=== PATIENT | male | born 1970 | race Caucasian/White ===

== ENCOUNTER → 2018-05-23 | Outpatient (CLI) | payer OTHER ==
[~2018-05-23] MED LIST: NEXIUM40 MG PO; NORCO 5-325 TA1 EACH PO; PHENERGAN 25 MG25 MG PO; TOPROL XL25 MG
== END ==
LOC: M.CT 07:41
DX: R91.1 Solitary pulmonary nodule (principal)

== ENCOUNTER 2018-08-01 08:19 | Emergency (ER) | payer OTHER ==
[~2018-08-01] VITALS: Ht 180.3 cm; Wt 102.1 kg
[2018-08-01 08:58] LABS: ABSOLUTE EOSINOPHILS 0.1 thou/uL (0.0-0.7); ABSOLUTE MONOCYTES 0.3 thou/uL (0.0-1.2); ABSOLUTE NEUTROPHILS 4.4 thou/uL (1.6-8.1); BASOPHILS 0.5 %; EOSINOPHILS 1.6 %; HEMATOCRIT 48.2 % (42.0-52.0); HEMOGLOBIN 16.6 gm/dL (14.0-18.0); LYMPHOCYTES 17.5 %; MCH 31.7 pg (26.0-34.0); MCHC 34.5 g/dL (28.0-37.0); MCV 91.9 fL (80.0-100.0); MONOCYTES 5.9 %; MPV 8.4 fl. (7.2-11.1); NUCLEATED RBCS 0 /100WBC; PLATELET COUNT* 227 thou/uL (150-400); POLYS 74.5 %; RBC 5.25 mil/uL (4.50-6.00); RDW-CV 13.2 % (10.5-14.5); WBC 5.9 thou/uL (4.0-11.0)
[2018-08-01 09:23] LABS: ALBUMIN 3.5 g/dL (3.4-5.0); CALCIUM 8.5 mg/dL (8.5-10.1); CREATININE 1.2 mg/dL (0.6-1.3); POTASSIUM 3.7 mmol/L (3.5-5.1); TOTAL BILIRUBIN 1.7 mg/dL (<0.1-1.0)
[2018-08-01] MEDS ORDERED: ZOFRAN4 MG PO (10:20)
[2018-08-01] MEDS ORDERED: ANTIVERT25 MG PO (10:20)
[2018-08-01 10:31] VITALS: BP 175/98
--- NOTE | 2018-08-01 17:09 | EKG ---
[place] [address] ELECTROCARDIOGRAM REPORT Name: FUADBAILEEMICHAELADRIANO YARBROUGH Room: [facility]#: [id number] Admission: 08/01/18 Attend Phys: Discharge: 08/01/18 Date of : 66 Report #: [id number] THIS REPORT FOR: //name// [facility] ED Test Date: 2018-08-01 Test Time: 09:03:22 Pat Name: MICHAEL PENA Department: Room: Gender: M Job Trainer: AMBER : 1970 Requested By: Carlo Granados Order Number: [id number] MD: Blayne Dinh Measurements Intervals [place] Rate: 63 P: 0 [place]: 176 QRS: -25 QRSD: 102 T: 29 QT: 395 QTc: 405 Interpretive Statements Sinus rhythm Borderline left axis deviation Abnormal R-wave progression, early transition Baseline wander in lead(s) V2 No previous ECG available for comparison Electronically Signed On 08-01-2018 17:09:40 CDT by Blayne Dinh [email or web address] <ELECTRONICALLY SIGNED> By: Blayne Dinh MD, [facility] 08/01/18 1709 2 2 Blayne Dinh MD, FAC /EPI
== END 2018-08-01 10:32 | disposition home or self-care (01) ==
LOC: M.ERS 08:19
PROVIDERS: Emergency Medicine
DX: R42 Dizziness and giddiness (principal); R11.2 Nausea with vomiting, unspecified; K21.9 Gastro-esophageal reflux disease without esophagitis; Z88.0 Allergy status to penicillin; Z90.49 Acquired absence of other specified parts of digestive tract

== ENCOUNTER 2020-03-17 22:05 | Emergency (ER) | payer OTHER ==
[~2020-03-17] VITALS: Ht 180.3 cm; Wt 101.2 kg
[~2020-03-17 22:05] MED LIST changes: +ANTIVERT25 MG PO; +ZOFRAN4 MG PO
[2020-03-17] MEDS ORDERED: PREDNISONE 10 M10 M1 PO (22:42)
[2020-03-17 22:59] VITALS: BP 132/90
== END 2020-03-17 23:01 | disposition home or self-care (01) ==
LOC: M.ERS 22:05
DX: L50.9 Urticaria, unspecified (principal); K21.9 Gastro-esophageal reflux disease without esophagitis; Z88.0 Allergy status to penicillin; Z90.49 Acquired absence of other specified parts of digestive tract